=== PATIENT | female | born 1970 | race Caucasian/White ===

== ENCOUNTER → 2016-06-22 | Outpatient (CLI) | payer BC ==
[~2016-06-22] MED LIST: ALLERCLEAR10 MG; BUSPAR15 MG PO; CYMBALTA60 MG PO; DIPHENHYDRAMINE; FISH OIL 1,0001 EAC5; GLUCOPHAGE500 MG PO; LOPRESSOR; MIDODRINE HCL 55 M1 PO; MIDRIN CAPSULE1 CAP; MULTIVITAMINS1 EAC7; OMEPRAZOLE40 MG; TOPROL XL25 MG PO; VITAMIN C + RO500 MG; VITAMIN D400 UNI1; XANAX 0.5 MG0.5 M1 PO; ZPAK PO; [UNRECOGNIZED DRUG - REMARK]
--- NOTE | ~2016-06-22 | SLE ---
[facility] [address] [place] [address] POLYSOMNOGRAPHY STUDY Name: TOBIAS MC Room #: REG [facility]#: [id number] Admission: 06/22/16 Attend Phys: Blaire Washburn MD Discharge: Date of : 70 Report #: [id number] THIS REPORT FOR: //name// CC: Nabor Mcknight MD INDICATIONS FOR PROCEDURE: The patient is 46 years old, height 5 feet 10 inches, weight 106 pounds. Usually goes to bed at midnight, gets out of bed at 10. Positive snoring and daytime somnolence. MEDICATIONS: Include Cymbalta, BuSpar. [place] sleepiness scale is 7. She quit using CPAP. COMMENTS: BASELINE PORTION: Total sleep time 133 minutes, sleep efficiency 56%. RESPIRATORY SUMMARY: Central apnea 0, obstructive apnea 13, hypopnea 102. Apnea-hypopnea index 52 events per sleep hour. No REM sleep seen. Supine AHI 68, left lateral 50, right lateral 41, prone 44 events per sleep hour. Periodic limb movement with arousal index 23 events per sleep hour. Snoring noted. Low oxygen saturation 78%, spending less than 1% of recording time less than 90%. CPAP TITRATION: Titrated at 5, 6, 7, 8 and 9 cm water pressure. At 9 cm water pressure, the patient was seen for 55 minutes of which 2.5 minutes was in REM sleep. Two central apneas, 11 hypopneas, apnea-hypopnea index of 14 events per sleep hour. Low oxygen saturation 84%. IMPRESSION: 1. Obstructive sleep apnea/hypopnea, G47.33. 2. Periodic limb movement with arousal index of 23 events per sleep hour, decreased during CPAP; however, did not normalize. 3. Snoring. 4. Premature ventricular contraction/sinus arrhythmia. 5. CPAP improves, however, does not totally correct apnea-hypopnea index, snoring and desaturation. SUGGESTIONS: 1. In addition to specific therapy, the patient should be cautioned regarding driving or operating dangerous machinery unless fully alert. The patient to be cautioned regarding the use of respiratory depressants. 2. Weight loss and TSH per Dr. Mcknight and Dr. Nabor Scruggs. 3. Oral appliance or appropriate surgery may be considered with appropriate followup. 4. Usual sleep apnea suggestions recommended. 5. An auto titrating CPAP between 5 and 12 cm water pressure is initially recommended. During our study, a [employer] [place] Q 1 size mask was used with heated humidity. 6. Consider evaluation regarding PVCs and sinus arrhythmia. [address] [address] POLYSOMNOGRAPHY STUDY Name: TOBIAS MC Room #: REG [facility] [place]#: [id number] Admission: 06/22/16 Attend Phys: Blaire Washburn MD Discharge: Date of : 70 Report #: [id number] 7. If signs and symptoms not improved with therapy, further evaluation is recommended. Please do not hesitate to contact me if I may be of further assistance. <ELECTRONICALLY SIGNED> By: Blaire Washburn MD 06/23/161913 1828 05 Blaire Washburn MD /nt
== END ==
LOC: SLEEPLAB 08:35
DX: G47.33 Obstructive sleep apnea (adult) (pediatric) (principal); R06.83 Snoring